=== PATIENT | male | born 2000 | race Caucasian/White ===

== ENCOUNTER 2024-02-02 14:42 | Emergency (ER) | payer BC, SELFPAY ==
[2024-02-02 14:53] VITALS: BP 139/95
[2024-02-02 15:32] LABS: ALT (SGPT) 25 U/L (0-50); AST (SGOT) 34 U/L (17-59); Albumin 4.9 g/dl (3.5-5.0); Alkaline Phosphatase 87 U/L (38-126); Blood Urea Nitrogen 8 mg/dl (9-20); Calcium 9.1 mg/dl (8.4-10.2); Carbon Dioxide 29 mmol/L (22-30); Chloride 99 mmol/L (98-107); Glucose 94 mg/dl (70-99); Potassium 3.6 mmol/L (3.5-5.1); Sodium 139 mmol/L (135-145); Total Bilirubin 0.4 mg/dl (0.2-1.3); Total Protein 7.5 g/dl (6.3-8.2); eGFR > 60.00
[2024-02-02 16:18] LABS: Hematocrit 42.3 % (39.0-52.0); Hemoglobin 15.1 g/dL (13.0-18.0); Mean Corp Hgb Conc. 35.7 g/dL (33.0-37.0); Mean Corpuscular Hgb 30.5 pg (27.0-31.0); Mean Corpuscular Volume 85.5 fL (80.0-94.0); Mean Platelet Volume 8.2 fL (7.4-10.4); Platelet Count 290 10^3/uL (130-400); Red Blood Cell Count 4.95 10^6/uL (4.70-6.10); Red Cell Dist. Width 12.6 % (11.5-14.5); White Blood Cell Count 10.4 10^3/uL (4.8-10.8)
[2024-02-02 16:19] LABS: % Basophils 0.7 % (0-2); % Immature Granulocytes 1.8 % (0-0.5); % Lymphocytes 21.7 % (20.5-51.1); % Monocytes 13.4 % (1.7-9.3); % Neutrophils 61.4 % (42.2-75.2); Absolute Basophils 0.1 10^3/uL (0-0.2); Absolute Eosinophils 0.1 10^3/uL (0-0.7); Absolute Immature Granulocytes 0.2 10^3/uL (0-0.05); Absolute Lymphocytes 2.3 10^3/uL (1.2-3.4); Absolute Monocytes 1.4 10^3/uL (0.1-0.6); Absolute Neutrophils 6.4 10^3/uL (1.4-6.5); Nucleated Red Blood Cells % 0 % (-)
--- NOTE | 2024-02-02 17:41 | ED.GENMED ---
History of Present Illness
General
Chief Complaint: Abdominal Symptoms
Source: patient
Exam Limitations: none
Time Seen by Provider: 02/02/24 17:26
History of Present Illness
History of Present Illness:
23-year-old male presents with 1 weeks worth of intermittent abdominal cramping fever and copious amounts of diarrhea his significant other is sick with similar symptoms. They think they had leftover cod causing him to be sick. He is in the
interim seen the urgent care and they started him on Zithromax for potential food poisoning. There has been no nausea or vomiting. No chest pain. No urinary symptoms. No blood in the stool. He tried Imodium without significant relief
Past History
Past History
ED Past Medical History: None
ED Past Surgical History: None
Phy Exam
Physical Exam
Physical Exam:
General: Well-appearing male no acute respiratory distress
HEENT: Normocephalic atraumatic
Heart: Regular rate and rhythm no murmurs
Lungs: Clear no wheeze or rales
Abdomen soft nontender nondistended no guarding rebound normal bowel sounds
Course
Orders/Labs/Results
Orders:
Orders
02/02/24 14:58
Complete Blood Count/With Diff Urgent
Comprehensive Metabolic Panel Urgent
Abnormal Lab Results
02/02/24
14:58
Abs Immat Gran (auto) 0.2 H 10^3/uL
(0-0.05)
Absolute Monos (auto) 1.4 H 10^3/uL
(0.1-0.6)
Immature Gran % 1.8 H %
(0-0.5)
Monocytes % 13.4 H %
(1.7-9.3)
BUN 8 L mg/dl
(9-20)
02/02/24 14:58
02/02/24 14:58
Vital Signs
Initial and Last Documented VS:
Initial Vital Signs
Temp Pulse Resp BP Pulse Ox
98.9 F 99 16 139/95 98
02/02/24 14:53 02/02/24 14:53 02/02/24 14:53 02/02/24 14:53 02/02/24 14:53
Last Documented Vital Signs
Temp Pulse Resp BP Pulse Ox
98.9 F 97 18 130/78 98
02/02/24 14:53 02/02/24 18:22 02/02/24 18:22 02/02/24 18:22 02/02/24 18:22
MDM/Problems Addressed
Differential Diagnosis Includes:
Diarrhea with crampy abdominal pain persistent over a week. Consider viral illness. He is on Zithromax for tensional food poisoning. He has been using Imodium. Labs ordered through triage were reviewed and are without significant finding.
Abdomen exam is benign. Considered imaging however given lack of tenderness, imaging not helpful at this time. Patient will try to give a stool culture.
*Critical Care Note
Total Time (30-74mins, 75-104mins- exclusive of procedures): Not Applicable
Update Note
Update Note:
Patient remains nontoxic. Unable to provide stool sample. Stable for discharge. He is currently being treated for food poisoning with azithromycin. No indication for any further intervention at this time.
ED Attending Note
-
Portions of this chart may have been created with voice recognition software.� Occasional wrong word or��sound alike� substitutions may have occurred due to the inherent limitations of voice recognition software.
Discharge Plan
Departure
Patient Disposition: Home (Routine Discharge)
Date of Disposition: 02/02/24
Time of Disposition: 18:51
Patient with high blood pressure during this ER visit?: No
Discharge Problem:
Diarrhea
Instructions: Diarrhea in teens and adults
Prescriptions:
No Action
cephalexin 500 MG capsule
500 mg PO BID Qty: 14 0RF
cephalexin 500 mg capsule
500 mg PO BID Qty: 14 0RF
ibuprofen 600 mg tablet
600 mg PO QID PRN (Reason: pain) Qty: 20 0RF
Referrals:
NONE,* [Family Provider] -
Activity Restrictions/Additional Instructions:
Continue with antibiotics. Continue with clear liquids. Continue with Imodium. Return if worse otherwise follow-up with family doctor
Interventions
Interventions:
*Risk Screen - Suicide Last Done: 02/02/24 16:58
*General Assessment Last Done: 02/02/24 16:58
*Neglect/Abuse Screening Last Done: 02/02/24 16:58
ED- Fall Risk Assessment Last Done: 02/02/24 16:58
RO-Xkjzdq-Zusqwmokzd Assessment Last Done: 02/02/24 16:58
Discharge Date and Time
Print Language: BRUNEIAN
[2024-02-02 18:22] VITALS: BP 130/78
== END 2024-02-02 20:21 | disposition home or self-care (01) ==
LOC: EMR 14:42
PROVIDERS: Emergency Medicine; EMERGENCY PHYSICIAN Student in an Organized Health Care Education/Training Program
DX: R19.7 Diarrhea, unspecified (principal)
CPT/HCPCS: 99283; 80053; 85025